=== PATIENT | female | born 1975 ===

== ENCOUNTER → 2019-11-06 12:41 | Outpatient (BNVA) | payer OTHER, SELFPAY | PROVIDERS: Family Provider Counselor Professional; PCP Counselor Professional; Visit Provider Nurse Practitioner Psychiatric/Mental Health | DX: F90.0 Attention-deficit hyperactivity disorder, predominantly inattentive type (principal) | CPT/HCPCS: 99213 ==

== ENCOUNTER → 2021-01-15 07:31 | Outpatient (BNVA) | payer BC, SELFPAY | PROVIDERS: Family Provider Counselor Professional; PCP Counselor Professional; Visit Provider Nurse Practitioner Psychiatric/Mental Health | DX: F90.0 Attention-deficit hyperactivity disorder, predominantly inattentive type (principal) | CPT/HCPCS: 99214 ==

== ENCOUNTER → 2021-04-04 15:49 | Outpatient (BNVA) | payer BC, SELFPAY | PROVIDERS: Family Provider Counselor Professional; PCP Counselor Professional; Visit Provider Nurse Practitioner Family | DX: Z20.822 Contact with and (suspected) exposure to COVID-19 (principal) | CPT/HCPCS: 87635 ==